=== PATIENT | female | born 1980 | race Caucasian/White ===

== ENCOUNTER 2023-04-06 11:10 | Outpatient (CLI) | payer BC, SELFPAY ==
--- NOTE | 2023-04-06 11:30 | CRLHL7_ITS ---
For Patients: As a result of the Century Cures Act, medical imaging exams and procedure reports are released immediately into your electronic medical record. You may view this report before your referring provider. If you have questions, please contact your health care provider. BILATERAL SCREENING MAMMOGRAM WITH COMPUTER-AIDED DETECTION AND TOMOSYNTHESIS TECHNIQUE: CC and MLO views were obtained. These mammographic images have been obtained using full-field digital technique. These mammographic images were interpreted with the benefit of computer-aided detection. Breast Tomosynthesis was used in this interpretation. COMPARISON FILM: 02/28/22, 10/08/20. FINDINGS: The breasts are heterogeneously dense, which may obscure small masses IMPRESSION: There is no radiographic evidence for malignancy. ASSESSMENT: BI-RADS Category 1: Negative RECOMMENDATION: Routine screening mammogram in 1 year. A lay language report of this examination will be provided to the patient. Price Larry M.D. Diagnostic Radiologist [email or web address] JAVIER/Dictated by: Price Larry MD @ 04/11/2023 12:23:00 PM (Electronically Signed)
== END 2023-04-06 11:11 | disposition home or self-care (01) ==
LOC: MAMMO 11:14
PROVIDERS: Visit Provider Obstetrics & Gynecology
DX: Z12.31 Encounter for screening mammogram for malignant neoplasm of breast (principal); R92.2 Inconclusive mammogram
CPT/HCPCS: 77063; 77067

== ENCOUNTER 2023-04-15 13:09 | Emergency (ER) | payer BC, SELFPAY ==
[2023-04-15 13:36] VITALS: BP 154/91; PULSE 87; RESP 16; TEMP 36.6; O2SAT 100; BMI 23.6
--- NOTE | 2023-04-15 14:39 | ED_ITS ---
HPI - Arrhythmia/Palpitations General Chief Complaint: Arrhythmia/Palpitations Stated Complaint: medication reaction, heart racing, has parkinsons Time Seen by Provider: 04/15/23 13:52 History of Present Illness HPI narrative: This 42-year-old female comes in because of an episode of lightheadedness. She has been feeling more palpitations over the past couple months since taking any new Parkinson's medication, Xadago. Today she had more frequent palpitations and became lightheaded when at [employer]. She did not have loss of consciousness but felt like she was going to pass out. She did not have any chest pain. This triggered significant anxiety for her. She feels back to no rmal at this time however she does feel some palpitations. Related Data Home Medications Medication Instructions Recorded Confirmed carbidopa 25 mg-levodopa 100 mg tab 04/15/23 tablet safinamide 50 mg tablet (Xadago) 50 mg PO BID 04/15/23 04/15/23 Allergies Allergy/AdvReac Type Severity Reaction Status Date / Time No Known Drug Allergies Allergy Verified 04/15/23 13:28 Review of Systems Status of ROS: Reports: 10 or more systems reviewed and unremarkable except as noted in History and below Narrative: Constitutional: No fevers, no weight gain or loss. Eyes: No discharge. No vision changes. HENT: No congestion, no sore throat, no ear pain. Cardiovascular: No chest pain. Palpitations and episode of lightheadedness as described above. Respiratory: No shortness of breath, no wheezes, no cough. Gastrointestinal: No abdominal pain, no vomiting, no diarrhea. Genitourinary: No dysuria, no hematuria. Musculoskeletal: Normal range of motion. Skin: No rashes, no pruritis. Neurological: No dizziness, weakness, sensory change, speech change. Endo/Heme/Allergies: No bruising or bleeding. No polydipsia. Pysch: no suicidality, no anxiety, no insomnia. All other systems reviewed and are negative. PFSH PFSH Social History Smoking Status: Never smoker How often do you have a drink containing alcohol: never AUDIT-C Alcohol total score: 0 Non-prescribed substance use: denies use Exam Narrative: Exam Narrative: Constitutional: Well-developed, well-nourished, no acute distress. HEENT: Normocephalic, atraumatic. Neck: Normal range of motion. Nontender. Supple. Heart: Regular. No murmurs. Normal rate. Intact distal pulses. Lungs: Clear to auscultation. No chest discomfort. No wheezes, rhonchi, or rales. Abdomen: Normal bowel sounds. Nontender. No rebound tenderness. Genitalia: Deferred. Back: No midline tenderness. Normal range of motion. Extremities: Normal range of motion. No injury. Skin: Intact. No rash. Warm. No erythema or pallor. Neurologic: No altered sensation. No weakness. Alert and oriented. Psychiatric: No suicidality. No anxiety or depression. No insomnia. Nursing notes and vitals signs are reviewed. Const: Vital Signs, click to edit/add: Vital Signs - 24 hr 04/15/23 13:36 Temperature 97.9 F Pulse Rate [Pulse Oximeter] 87 Respiratory Rate 16 Blood Pressure [Ri ght Upper Arm] 154/91 H Pulse Oximetry 100 Oxygen Delivery Me thod Room Air Course Vital Signs Vital signs: Initial Vital Signs Temperature 97.9 F 04/15/23 13:36 Temperature Source Temporal Artery Scan 04/15/23 13:36 Pulse Rate 87 04/15/23 13:36 Pulse Rhythm Regular 04/15/23 13:36 Respiratory Rate 16 04/15/23 13:36 Blood Pressure 154/91 H 04/15/23 13:36 Blood Pressure Mean 112 H 04/15/23 13:36 Blood Pressure Position Sitting 04/15/23 13:36 Pulse Oximetry 100 04/15/23 13:36 Oxygen Delivery Method Room Air 04/15/23 13:36 Vital Signs Temperature 97.9 F 04/15/23 13:36 Pulse Rate 87 04/15/23 13:36 Respiratory Rate 16 04/15/23 13:36 Blood Pressure 154/91 H 04/15/23 13:36 Pulse Oximetry 100 04/15/23 13:36 Oxygen Delivery Method Room Air 04/15/23 13:36 Temperature 97.9 F 04/15/23 13:36 Pulse Rate 87 04/15/23 13:36 Respiratory Rate 16 04/15/23 13:36 Blood Pressure 154/91 H 04/15/23 13:36 Pulse Oximetry 100 04/15/23 13:36 Oxygen Delivery Method Room Air 04/15/23 13:36 MDM - Arrhythmia/Palpitations MDM Narrative Medical decision making narrative: This patient comes in reporting an episode of near-syncope and reported some palpitations happening frequently at that time. She has been having palpitations more readily over the past couple months since switching to a new Parkinson's medicine, Xadago. EKG here shows frequent PVCs. There are no ST or T-wave abnormalities. The patient's vital signs are in normal range and she is not having any other symptoms currently. I did discuss other lab and imaging options with the patient and she did request a check of her troponin level. This returns at 0. I did recommend some kind of heart monitor if symptoms are recurrent. I discussed Holter monitor and Zio patch as some options. This patient is okay to be discharged home and is encouraged to follow-up with her neurologist regarding the possibility that her symptoms are related to this medication. Lab Data Labs: Lab Results 04/15/23 Range/Units 14:45 POC Troponin I 0.00 L (0.01-0.04) ng/ml ECG Data Attestation: I personally reviewed and interpreted this ECG as follows: Interpretation: Sinus rhythm with frequent PVCs. Rate is 80 beats per minute. There are no specific ST or T-wave abnormalities. Discharge Plan Discharge Clinical Impression: Palpitations, Near syncope Patient Disposition: Home, Self-Care Condition: Stable Additional Instructions: Follow-up with primary physician or neurologist to review medications. Return if symptoms are recurrent or persistent. Consider Holter monitor or Zio patch f or further evaluation. Prescriptions: No Action carbidopa-levodopa 25-100 mg tablet Patient Comments: PLEASE SEE ATTACHED FOR DETAILED DIRECTIONS Xadago 50 mg tablet 50 mg PO BID Follow Up/Referrals: Provider,Not a Local [Primary Care Provider] - Stand Alone Forms: Donate Your Desktop Info Instructions
[2023-04-15 15:15] VITALS: BP 154/91; PULSE 87; RESP 16; TEMP 36.6
== END 2023-04-15 15:15 | disposition home or self-care (01) ==
PROVIDERS: Emergency Provider Emergency Medicine Emergency Medical Services
DX: R00.2 Palpitations (principal); R55 Syncope and collapse
CPT/HCPCS: 84484; 93005; 99283; 99284